=== PATIENT | male | born 1995 | race Caucasian/White ===

== ENCOUNTER → 2017-03-13 | Outpatient (CLI) | payer BC ==
[~2017-03-13] MED LIST: ALBUAER2 INH; FLVHFA110 INH; SNG10 PO
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
== END | disposition home or self-care (01) ==
LOC: C.RDSM 16:22
PROVIDERS: ATTEND Internal Medicine
DX: M79.671 Pain in right foot (principal)

== ENCOUNTER → 2017-03-14 | Outpatient (CLI) | payer BC ==
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
--- NOTE | 2017-03-18 15:13 | CODING QUERY NO DIAGNOSIS ---
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 Please assist us with providing a diagnosis/symptom for the test(s) below: A diagnosis/symptom was not documented on your Order. A valid diagnosis/symptom is required to bill all insurances. Please remember that we are unable to code a diagnosis of rule out, probable, possible, questionable, or suspected. Tests that require a diagnosis: * MRI LOWER EXT NONJOINT W/O CONTRAST DIAGNOSIS: Provider Signature: Date: Thank you Parul Hernandez [employer] Once completed, please kindly fax back to [phone] For questions please call [phone]
--- NOTE | 2017-03-26 05:55 | EDITING REQUIRED CODING QUERY ---
SUPPORTING DIAGNOSIS NEEDED A supporting diagnosis is required for the test/procedure performed on this patient in order for us to be reimbursed by the patient's insurance. Please provide a supporting diagnosis for the following test/procedure listed below next to the test name along with your signature. *If there is no additional diagnosis for this patient that would support the following test/procedure please document that below next to the test/procedure. Test(s)/Procedure(s) that require a supporting diagnosis: * MRI LOWER EXT NONJOINT W/O CONTRAST DIAGNOSIS: Provider Signature: Date: Thank you Parul Shalimar [employer] Once completed, please kindly fax back to [phone] For questions please call [phone]
== END | disposition home or self-care (01) ==
LOC: C.MRI 19:50
PROVIDERS: ATTEND Physical Medicine & Rehabilitation Sports Medicine
DX: S92.424A Nondisplaced fracture of distal phalanx of right great toe, initial encounter for closed fracture (principal); X58.XXXA Exposure to other specified factors, initial encounter

== ENCOUNTER → 2017-04-14 | Outpatient (CLI) | payer BC ==
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
== END | disposition home or self-care (01) ==
LOC: C.RDSM 10:15
PROVIDERS: ATTEND Internal Medicine
DX: S92.901A Unspecified fracture of right foot, initial encounter for closed fracture (principal); X58.XXXA Exposure to other specified factors, initial encounter

== ENCOUNTER → 2017-06-02 | Outpatient (CLI) | payer BC ==
--- NOTE | 2017-06-02 09:51 | DIAGNOSTIC IMAGING REPORT ---
RIGHT FOOT MIN 3 VIEWS CLINICAL HISTORY: Right foot pain COMPARISON: 04/14/2017, MRI dated 03/14/2017 DISCUSSION: No acute fractures or dislocations are visualized. There is a small ossicle visualized in the lateral view the base the metatarsals. There are no erosive or destructive changes. There is subtle sclerotic change at the base of the first metatarsal. IMPRESSION: Very subtle sclerosis at the base of the first metatarsal. This may relate to the fracture described on the March 2017 MRI study. No acute fractures are visualized on conventional radiographic imaging Electronically signed by: Jomar Moss M.D. 06/02/2017 9:50 AM Dictated Date/Time: 06/02/2017 9:47 AM
== END | disposition home or self-care (01) ==
LOC: C.RDSM 13:55
PROVIDERS: ATTEND Physician Assistant
DX: M79.671 Pain in right foot (principal)

== ENCOUNTER → 2017-07-11 | Outpatient (CLI) | payer BC ==
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
== END | disposition home or self-care (01) ==
LOC: C.MRI 17:21
PROVIDERS: ATTEND Internal Medicine
DX: S92.504A Nondisplaced unspecified fracture of right lesser toe(s), initial encounter for closed fracture (principal); X58.XXXA Exposure to other specified factors, initial encounter

== ENCOUNTER 2017-10-17 22:07 | Inpatient (IN) | payer BC, OTHER ==
[~2017-10-17] VITALS: Ht 190.5 cm; Wt 79.3 kg
[2017-10-17] MEDS ORDERED: SODIUM CHLORIDE 0.9% 1000ML 1,000 ML IV ONE (22:30)
[2017-10-17] MEDS ORDERED: XYLOCAINE 1%/SOD BICARB 20 ML VIAL INFIL ONE (22:30)
[2017-10-17] MEDS ORDERED: MoRPHine SULFATE 4 MG/ML 1 ML CARP\\VIAL IV ONE (22:30)
[2017-10-17] MEDS ORDERED: EPP3/2 IM (22:38)
[2017-10-17 22:59] LABS: BASO % 0.2 %; BASO ABS # 0.01 K/uL (0-0.2); EOS % 0.5 %; EOS ABS # 0.03 K/uL (0-0.5); HEMATOCRIT 42.7 % (42-52); IG# 0.03 K/uL (0.00-0.02); LYMPH % 27.7 %; LYMPH ABS # 1.55 K/uL (1.2-3.4); MEAN CELL VOLUME 85.6 fL (80-100); MEAN CORPUSCULAR HEMOGLOBIN 30.1 pg (25-34); MEAN CORPUSCULAR HGB CONC 35.1 g/dl (32-36); MEAN PLATELET VOLUME 10.3 fL (7.4-10.4); MONO % 7.7 %; MONO ABS # 0.43 K/uL (0.11-0.59); NEUT % 63.4 %; NEUT ABS # 3.54 K/uL (1.4-6.5); PLATELET COUNT 167 K/uL (130-400); RED CELL DISTRIBUTION WIDTH CV 11.9 % (11.5-14.5); RED CELL DISTRIBUTION WIDTH SD 36.8 fL (36.4-46.3); WHITE BLOOD COUNT 5.59 K/uL (4.8-10.8)
[2017-10-17 23:22] LABS: ALBUMIN 4.2 gm/dl (3.4-5.0); CALCIUM 8.5 mg/dl (8.5-10.1); CREATININE 1.02 mg/dl (0.60-1.40); POTASSIUM 3.4 mmol/L (3.5-5.1)
[2017-10-17 23:24] LABS: TOTAL PROTEIN 7.2 gm/dl (6.4-8.2)
[2017-10-18] MEDS ORDERED: MoRPHine SULFATE 4 MG/ML 1 ML CARP\\VIAL IV ONE (03:00)
[2017-10-18] MEDS ORDERED: NURSING VERBAL MED ORDER ONE (03:00)
[2017-10-18 03:55] VITALS: BP 137/82; PULSE 94; TEMP 37.7; O2SAT 96; Ht 190.5 cm; Wt 79.3 kg
[2017-10-18] MEDS ORDERED: LACTATED RINGER'S 1000ML 1,000 ML IV SCH (05:15)
[2017-10-18] MEDS ORDERED: ONDANSETRON INJ 2 MG/ML 2 ML VIAL IV PRN (05:15)
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
[2017-10-18] MEDS: OXYCODONE HCL IR 5 MG TAB (IMMEDIATE RELEASE) PO PRN ×5 (05:48→23:26)
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
[2017-10-18 06:17] LABS: INR 1.1 (0.9-1.1)
[2017-10-18 07:34] VITALS: BP 132/79; PULSE 109; TEMP 37.7; O2SAT 97
[2017-10-18] MEDS: DOCUSATE SODIUM 100 MG CAP PO SCH ×2 (08:35→21:08)
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
[2017-10-18] MEDS ORDERED: ENOXAPARIN 40 MG/0.4 ML SYR SQ SCH (12:00)
[2017-10-18 15:42] VITALS: BP 131/67; PULSE 86; TEMP 37.3; O2SAT 95
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
[2017-10-18 22:50] VITALS: BP 138/73; PULSE 69; TEMP 37.3; O2SAT 98
[2017-10-19] MEDS: OXYCODONE HCL IR 5 MG TAB (IMMEDIATE RELEASE) PO PRN ×4 (05:00→20:50)
[2017-10-19 07:25] VITALS: BP 125/71; PULSE 76; TEMP 36.9; O2SAT 98
--- NOTE | 2017-10-19 08:12 | Orthopedic Progress Note ---
Orthopedic Progress Note Date of Service Oct 19, 2017. Subjective Additional Notes: Got up to chair with PT and a walker yesterday. Pain well controlled on oxycodone. No numbness/tingling. Would like to avoid needle injections for DVT prophylaxis Objective calves soft nontender, N/V intact, hip located, capillary refill less than 2 sec., A&O x3, toes mobile L hip: able to actively logroll hip and gently flex. Distally NVI. Date Time Temp Pulse Resp B/P (MAP) Pulse Ox O2 Delivery O2 Flow Rate FiO2 10/19/17 07:25 36.9 76 19 125/71 (89) 98 Room Air 10/18/17 23:20 Room Air 10/18/17 22:50 37.3 69 16 138/73 (94) 98 Room Air 10/18/17 15:42 37.3 86 19 131/67 (88) 95 Room Air 10/18/17 15:10 Room Air Assessment & Plan Assessment: L nondisplaced intertrochanteric hip fracture, tolerating nonoperative treatment to date Plan: Will switch DVT prophylaxis from Lovenox to Xarelto to avoid needle sticks Continue oxycodone and tylenol for pain control NWB LLE with walker. Would wait until tomorrow to switch to crutches Activity: bed to chair and bed to bathroom. If tolerates this, may ambulate into hallway with walker. Will obtain x-rays this afternoon after PT/OT to ensure no displacement of fracture Discharge plan: home once able to independently get OOB and ambulate NWB LLE with assistive device. Expect this to be Friday or Friday at the earliest Discharge Planning Pain Management: PO Tylenol, Oxy IR DVT Prophylaxis: Xarelto Therapy: Physical Therapy, Occupational Therapy
[2017-10-19] MEDS: DOCUSATE SODIUM 100 MG CAP PO SCH ×2 (08:56→20:49)
[2017-10-19] MEDS: RIVAROXABAN 10 MG TAB PO SCH (10:14)
[2017-10-19] MEDS: ACETAMINOPHEN 500 MG TAB PO PRN ×2 (12:21→20:49)
[2017-10-19 13:04] VITALS: BP 133/82
--- NOTE | 2017-10-19 14:36 | DIAGNOSTIC IMAGING REPORT ---
LEFT HIP 2 VIEWS HISTORY: L intertrochanteric hip fracture. COMPARISON: Left hip CT 10/17/2017. FINDINGS: No change in the nondisplaced left intertrochanteric hip fracture. The visualized pelvic bones are intact. No dislocation. Lateral soft tissue swelling within the hip. No radiopaque foreign bodies. IMPRESSION: No change in the nondisplaced left intertrochanteric hip fracture. Electronically signed by: Anant Best M.D. 10/19/2017 2:35 PM Dictated Date/Time: 10/19/2017 2:33 PM
[2017-10-19 15:47] VITALS: BP 147/71; PULSE 54; TEMP 37; O2SAT 99
[2017-10-19 23:20] VITALS: BP 120/48; PULSE 61; TEMP 36.9; O2SAT 97
[2017-10-20] MEDS: OXYCODONE HCL IR 5 MG TAB (IMMEDIATE RELEASE) PO PRN ×6 (00:56→21:23)
[2017-10-20] MEDS: ACETAMINOPHEN 500 MG TAB PO PRN ×2 (06:49→21:22)
[2017-10-20 07:01] VITALS: BP 122/67; PULSE 66; TEMP 36.9; O2SAT 100
[2017-10-20] MEDS: RIVAROXABAN 10 MG TAB PO SCH (09:01)
[2017-10-20] MEDS: DOCUSATE SODIUM 100 MG CAP PO SCH ×2 (09:01→21:36)
--- NOTE | 2017-10-20 16:00 | Orthopedic Progress Note ---
Orthopedic Progress Note Date of Service Oct 20, 2017. 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 Objective calves soft nontender, N/V intact, hip located, A&O x3, toes mobile Able to passively internally and externally rotate Left LE with mild pain referred to hip Date Time Temp Pulse Resp B/P (MAP) Pulse Ox O2 Delivery O2 Flow Rate FiO2 10/20/17 07:15 Room Air 10/20/17 07:01 36.9 66 16 122/67 (85) 100 Room Air 10/19/17 23:20 36.9 61 16 120/48 (72) 97 Room Air 10/19/17 23:20 Room Air Assessment & Plan Assessment: L nondisplaced intertrochanteric hip fracture, tolerating nonoperative treatment to date Plan: Cont DVT prophylaxis with Xarelto Continue oxycodone and tylenol for pain control NWB LLE with walker. Activity: bed to chair and bed to bathroom. If tolerates this, may ambulate into hallway with walker. Discharge plan: home once able to independently get OOB and ambulate NWB LLE with assistive device. Expect this to be Friday or Friday. Considering either home therapy or inpatient therapy at [facility] upon discharge. Will cont to follow while inpatient and will schedule clinic f/u upon discharge. Discharge Planning Pain Management: PO Tylenol, Oxy IR DVT Prophylaxis: Xarelto Therapy: Physical Therapy, Occupational Therapy
[2017-10-20 23:01] VITALS: BP 133/79; PULSE 63; TEMP 36.6; O2SAT 98
[2017-10-21] MEDS: OXYCODONE HCL IR 5 MG TAB (IMMEDIATE RELEASE) PO PRN ×2 (02:40→20:52)
--- NOTE | 2017-10-21 07:24 | Orthopedic Progress Note ---
Orthopedic Progress Note Date of Service Oct 21, 2017. Subjective Additional Notes: Hargill more comfortable in bed and with therapy yesterday. Has been able to space out his oxycodone more. Wore a knee immobilizer for transfers which seemed to help. Has not had a bowel movement yet as an inpatient Objective L leg: actively internally and externally rotating L leg with mild pain in groin. Distally NVI. Date Time Temp Pulse Resp B/P (MAP) Pulse Ox O2 Delivery O2 Flow Rate FiO2 10/20/17 23:01 36.6 63 18 133/79 (97) 98 Room Air 10/20/17 23:00 Room Air 10/20/17 15:40 Room Air Assessment & Plan Assessment: L nondisplaced intertrochanteric hip fracture, tolerating nonoperative treatment to date Plan: Continue to wean his oxycodone, with short-term goal that he only takes it before and after PT/OT in next day or two. Tylenol switched to scheduled basis. Cont DVT prophylaxis with Xarelto On Colace, will add Miralax prn for constipation PT/OT daily. NWB LLE with walker. Activity: bed to chair and bed to bathroom. If tolerates this, may ambulate into hallway with walker. Discharge plan: home once able to independently get OOB and ambulate NWB LLE with assistive device. Due to his current pain level with mobilizing, this will likely not be before the weekend. Will cont to follow while inpatient and will schedule clinic f/u upon discharge. Discharge Planning Pain Management: PO Tylenol, Oxy IR DVT Prophylaxis: Xarelto Therapy: Physical Therapy, Occupational Therapy
[2017-10-21] MEDS: DOCUSATE SODIUM 100 MG CAP PO SCH ×2 (08:42→20:51)
[2017-10-21] MEDS: POLYETHYLENE (MIRALAX) 17 GM PACK PO PRN (08:42)
[2017-10-21] MEDS: ACETAMINOPHEN 500 MG TAB PO SCH ×2 (08:43→16:20)
[2017-10-21] MEDS: RIVAROXABAN 10 MG TAB PO SCH (09:51)
[2017-10-21 15:09] VITALS: BP 123/76; PULSE 66; TEMP 36.7; O2SAT 100
[2017-10-21 22:56] VITALS: BP 125/79; PULSE 59; TEMP 36.5; O2SAT 97
[2017-10-22] MEDS: ACETAMINOPHEN 500 MG TAB PO SCH ×4 (00:37→23:58)
[2017-10-22] MEDS: OXYCODONE HCL IR 5 MG TAB (IMMEDIATE RELEASE) PO PRN ×3 (00:51→19:52)
[2017-10-22 07:38] VITALS: BP 128/78; PULSE 60; TEMP 36.5; O2SAT 98
[2017-10-22] MEDS: DOCUSATE SODIUM 100 MG CAP PO SCH ×2 (08:23→19:51)
[2017-10-22] MEDS: RIVAROXABAN 10 MG TAB PO SCH (08:23)
--- NOTE | 2017-10-22 08:35 | Orthopedic Progress Note ---
Orthopedic Progress Note Date of Service Oct 22, 2017. Subjective Additional Notes: Lewis was able to ambulate to the bathroom and back with walker yesterday, and had 2 bowel movements. He did not require any oxycodone during the day. This morning, he was dreaming of tackling someone, and reflexively moved his hip, causing some pain but this responded to tylenol and oxycodone. Objective calves soft nontender, N/V intact, hip located, capillary refill less than 2 sec., toes mobile Date Time Temp Pulse Resp B/P (MAP) Pulse Ox O2 Delivery O2 Flow Rate FiO2 10/22/17 07:38 36.5 60 18 128/78 (95) 98 Room Air 10/22/17 00:35 Room Air 10/21/17 22:56 36.5 59 14 125/79 (94) 97 Room Air 10/21/17 15:35 Room Air 10/21/17 15:09 36.7 66 18 123/76 (92) 100 Room Air Assessment & Plan Assessment: L nondisplaced intertrochanteric hip fracture, tolerating nonoperative treatment to date Plan: PT/OT daily. NWB LLE with walker. 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 Activity: bed to chair and bed to bathroom. May ambulate in the hallway with walker if tolerated. Will check an x-ray of his hip after physical therapy today to ensure no displacement as a result of his dream this morning or PT. Continue to wean his oxycodone. Continue Tylenol on a scheduled basis. DVT prophylaxis with Xarelto, TEDS and foot pumps Colace scheduled and Miralax prn for constipation Discharge plan: home once able to independently get OOB and ambulate NWB LLE with assistive device. Due to his current pain level with mobilizing, this will likely not be before the weekend. Will cont to follow while inpatient and will schedule clinic f/u upon discharge. Discharge Planning Pain Management: PO Tylenol, Oxy IR DVT Prophylaxis: Xarelto Therapy: Physical Therapy, Occupational Therapy
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
[2017-10-22 15:30] VITALS: BP 120/74; PULSE 75; TEMP 36.8; O2SAT 96
[2017-10-22 22:52] VITALS: BP 130/77; PULSE 75; TEMP 36.6; O2SAT 96
[2017-10-23] MEDS: OXYCODONE HCL IR 5 MG TAB (IMMEDIATE RELEASE) PO PRN ×4 (06:32→21:03)
--- NOTE | 2017-10-23 07:25 | Orthopedic Progress Note ---
Orthopedic Progress Note Date of Service Oct 23, 2017. Subjective Additional Notes: Ambulated 150 feet with walker yesterday. Still difficulty raising his foot off the ground. Objective N/V intact, hip located, capillary refill less than 2 sec., A&O x3, toes mobile Date Time Temp Pulse Resp B/P (MAP) Pulse Ox O2 Delivery O2 Flow Rate FiO2 10/22/17 22:52 36.6 75 16 130/77 (94) 96 Room Air 10/22/17 19:30 Room Air 10/22/17 16:00 Room Air 10/22/17 15:30 36.8 75 16 120/74 (89) 96 Room Air 10/22/17 07:38 36.5 60 18 128/78 (95) 98 Room Air Additional Notes: X-ray done yesterday afternoon shows no displacement Assessment & Plan Assessment: L nondisplaced intertrochanteric hip fracture, tolerating nonoperative treatment to date Plan: PT/OT daily. NWB LLE with walker. 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 Activity: bed to chair and bed to bathroom. May ambulate in the hallway with walker if tolerated. Will check an x-ray of his hip after physical therapy today to ensure no displacement as a result of his dream this morning or PT. Continue to wean his oxycodone. Continue Tylenol on a scheduled basis. DVT prophylaxis with Xarelto, TEDS and foot pumps Colace scheduled and Miralax prn for constipation Discharge plan: home once able to independently get OOB and ambulate NWB LLE with assistive device. Due to his current pain level with mobilizing, this will likely not be before the weekend. Will cont to follow while inpatient and will schedule clinic f/u upon discharge. Discharge Planning Pain Management: PO Tylenol, Oxy IR DVT Prophylaxis: Xarelto Therapy: Physical Therapy, Occupational Therapy
[2017-10-23 07:41] VITALS: BP 129/78; PULSE 55; TEMP 36.4; O2SAT 98
[2017-10-23] MEDS: DOCUSATE SODIUM 100 MG CAP PO SCH ×2 (08:31→21:02)
[2017-10-23] MEDS: RIVAROXABAN 10 MG TAB PO SCH (08:31)
[2017-10-23] MEDS: ACETAMINOPHEN 500 MG TAB PO SCH ×2 (08:31→15:59)
[2017-10-23 15:15] VITALS: BP 115/68; PULSE 65; TEMP 36.6; O2SAT 97
[2017-10-23 16:00] VITALS: O2SAT 97
[2017-10-23 23:05] VITALS: BP 138/82; PULSE 58; TEMP 36.8; O2SAT 98
[2017-10-24] MEDS: ACETAMINOPHEN 500 MG TAB PO SCH ×4 (00:39→23:12)
[2017-10-24 07:44] VITALS: BP 123/81; PULSE 56; TEMP 36.5; O2SAT 96
[2017-10-24] MEDS: DOCUSATE SODIUM 100 MG CAP PO SCH ×2 (09:00→21:14)
--- NOTE | 2017-10-24 09:04 | Orthopedic Progress Note ---
Orthopedic Progress Note Date of Service Oct 24, 2017. Subjective Additional Notes: Ambulated with crutches yesterday. Able to pick his foot up off the ground. Not able to transfer in/out of bed independently yet. Objective calves soft nontender, N/V intact, hip located, capillary refill less than 2 sec., A&O x3, toes mobile Date Time Temp Pulse Resp B/P (MAP) Pulse Ox O2 Delivery O2 Flow Rate FiO2 10/24/17 07:44 36.5 56 17 123/81 (95) 96 Room Air 10/24/17 00:45 Room Air 10/23/17 23:05 36.8 58 18 138/82 (100) 98 Room Air 10/23/17 19:30 Room Air 10/23/17 16:00 97 Room Air 10/23/17 15:15 36.6 65 18 115/68 (84) 97 Room Air Assessment & Plan Assessment: L nondisplaced intertrochanteric hip fracture, improving Plan: PT/OT daily. NWB LLE with walker or chair Activity: up ad jairo Continue to wean his oxycodone. Continue Tylenol on a scheduled basis. DVT prophylaxis with Xarelto, TEDS and foot pumps Colace scheduled and Miralax prn for constipation Discharge plan: home once able to independently get OOB and ambulate NWB LLE with assistive device. Anticipate discharge tomorrow or Friday. Discharge Planning Pain Management: PO Tylenol, Oxy IR DVT Prophylaxis: Xarelto Therapy: Physical Therapy, Occupational Therapy
[2017-10-24] MEDS: RIVAROXABAN 10 MG TAB PO SCH (09:30)
[2017-10-24] MEDS: OXYCODONE HCL IR 5 MG TAB (IMMEDIATE RELEASE) PO PRN ×2 (09:31→20:28)
[2017-10-24] MEDS ORDERED: OXYC1CAP5 PO (12:29)
[2017-10-24] MEDS ORDERED: XRL10 PO (12:29)
[2017-10-24] MEDS ORDERED: ACET-1256 PO (12:29)
--- NOTE | 2017-10-24 12:34 | Discharge Instructions ---
Discharge Instructions Date of Service Oct 24, 2017. Admission Reason for Admission: Left Introcanteric Hip Fx Discharge Discharge Diagnosis / Problem: Left Intratrochanteric hip Fracture Discharge Goals Goal(s): Decrease discomfort, Improve function, Increase independence Activity Recommendations Activity Limitations: as noted below Lifting Limitations: until after follow-up appointment Exercise/Sports Limitations: until after follow-up appointment May Resume Sexual Activity: after follow-up appointment Shower/Bathe: no limitations Driving or Machine Use: No driving until cleared by orthopedic surgeon Weightbearing Status: Left non-weightbearing (Ambulatory aid with crutches) . Instructions / Follow-Up Instructions / Follow-Up Post-operative Instructions Dear Patient and Family/Friends, Before you are discharged from the hospital, it is important to know what to expect when you get home after surgery. To that end, we have created this sheet of discharge instructions which covers many commonly asked questions. Make sure you go through this sheet in its entirety with your nurse before you are discharged. Please note that we will go over the specifics of your surgery and recovery when you return for your first post-operative visit. Sincerely, Dr. Hodge Pain Expect to be in a fair amount of pain after surgery. Remember, our goal is not to eliminate your pain, but to make it tolerable. It is a good idea to stay ahead of your pain by taking the medications you were prescribed once you get home. Typically, the pain starts improving 3-7 days after surgery. You should start weaning off the narcotic pain medication (oxycodone, hydrocodone, hydromorphone, morphine) as soon as your pain improves. Please call our office if your pain is not adequately controlled. Ice Ice your operative site at least 5 times a day for 15-30 minutes at a time. Make sure you have a thin cloth between the ice or cooling unit and your skin to prevent cottrell bite. This is especially important if you received a nerve block. Continue icing your operative site for the first 5-7 days after surgery , then as needed. Diet/Nausea/Vomiting Start by drinking clear liquids and eating crackers. If you can tolerate this, then you may resume your normal diet. If you feel nauseated or vomit, take Zofran/ondansetron (if prescribed). Please call our office if you have intractable nausea or vomiting, or, if after hours, you may go to the Emergency Room for help. Constipation Constipation is a common side effect of narcotic pain medication. If you have not had a bowel movement within 2 days after surgery, we recommend purchasing an over the counter laxative such as Milk of Magnesia, Dulcolax, or Miralax from a local pharmacy, and taking it as instructed. Call our clinic if any questions. Slings and Braces If you were placed in a sling or brace, it must be worn at all times, including sleep. You may remove your sling or brace for physical therapy, home exercises , and showering. The length of time you will be in your brace and range of motion restrictions depends on what surgery you had; these details will be reviewed at your first post-operative appointment. Nerve block The anesthesia team sometimes places a nerve block to help with post-operative pain control. This results in significant numbness and inability to move the extremity. The nerve block usually wears off in 8-12 hours, but sometimes can last up to 24 hours. Please call our office if you are still unable to move your extremity after 24 hours, unless you received a pain pump to take home. Nerve blocks typically wear off quickly, so start taking pain medication as soon as you start feeling soreness near your surgical site. Weight bearing and Range of Motion. Do not bear any weight through your operative extremity immediately after surgery. If you had upper extremity surgery, do not lift anything with that arm. If you are in a knee brace, keep it locked in place until your follow-up. We will discuss your weight bearing, range of motion, and lifting restrictions in detail at your first post-operative appointment. Continuous Passive Motion (CPM) Machine If you were prescribed a CPM machine, it will start after your first post- operative appointment, at which time we will give you instructions on the range of motion settings and duration of treatment Physical therapy You will be given a prescription for physical therapy or occupational therapy at your first post-operative appointment. Typically, patients start therapy within 1 week of surgery Wound care and showering We will inspect your wound at your first post-operative visit, and may do a dressing change at that time. Most patients will be in a water-proof dressing that is removed 14 days after surgery. It is normal to see some dried blood on the dressing. Do not remove your dressing, paper strips or sutures yourself unless you are given permission. Showering is allowed the day after surgery. Do not scrub or remove any dressings. The wound should not be submerged underwater (i.e. in a bathtub or pool) until 4 weeks after surgery ANA stockings If you were given white stockings, these are to be worn at all times except to shower (on both legs) for the first 2 weeks after surgery. Driving You may not drive while taking narcotic pain medication or while in a cast, splint, sling or brace. You, the patient, need to make the final determination about when you are safe to drive, however, the earliest you may consider driving after surgery is below: Hand/Wrist/Elbow Surgery: 3 days Shoulder Surgery: 2 weeks Hip,/Knee/Ankle Surgery: 4 weeks Fracture repair: 6 weeks Return to Work Your return to work depends on what surgery was done and what type of work you do. Please bring any paperwork your employer needs completed to your first post -operative visit. Also, bring a description of your job duties, as this helps us to understand what risks you may face at work. Travel Avoid long distance travel (greater than 1 hour) in airplanes and cars for the first 6 weeks after surgery. If you must travel, you need to have a Doppler ultrasound done before you travel to rule out a blood clot in your legs. Follow-up You should have a follow-up appointment already scheduled 1-2 days after surgery. If not, please contact our office to make this appointment before you leave the hospital. When to call the office It is normal to have swelling and bruising in the limb that was operated on. This will improve with time. It is also normal to have fevers for the first 2 days after surgery. Reasons you should call your doctor include: Uncontrolled pain; Nausea, vomiting, or constipation that does not improve with medication; Fevers over 101.5, chills, sweats; Drainage or bleeding from the wound; Foul odor; Spreading areas of redness; Any other concerns Current Hospital Diet Patient's current hospital diet: Regular Diet Discharge Diet Recommended Diet: Regular Diet Pending Studies Studies pending at discharge: no Medical Emergencies . Who to Call and When: Medical Emergencies: If at any time you feel your situation is an emergency, please call 911 immediately. . Non-Emergent Contact Non-Emergency issues call your: Primary Care Provider Call Non-Emergent contact if: you have a fever, temperature is above 101.5, your pain is not controlled, your pain is worsening, you have any medication questions . "Provider Documentation" section prepared by Ramses Mcmanus. . VTE Core Measure Inpt VTE Proph given/why not?: Other Anticoagulation (xarelto), [place] Drug Monitoring Program Search Results: patient reviewed within database, no issues identified, see additional documentation
[2017-10-24] MEDS: POLYETHYLENE (MIRALAX) 17 GM PACK PO PRN (13:24)
[2017-10-24 15:12] VITALS: BP 132/70; PULSE 63; TEMP 36.4; O2SAT 97
[2017-10-24 22:42] VITALS: BP 125/72; PULSE 58; TEMP 36.5; O2SAT 98
[2017-10-25 08:00] VITALS: BP 135/83; PULSE 58; TEMP 36.5; O2SAT 99
[2017-10-25] MEDS: ACETAMINOPHEN 500 MG TAB PO SCH (08:01)
[2017-10-25] MEDS: DOCUSATE SODIUM 100 MG CAP PO SCH (08:12)
[2017-10-25] MEDS: RIVAROXABAN 10 MG TAB PO SCH (08:12)
--- NOTE | 2017-10-25 09:42 | Orthopedic Progress Note ---
Orthopedic Progress Note Date of Service Oct 25, 2017. Subjective Post OP Day: 5 days post injury Reports: feeling well, pain controlled w PO medications, Denies: complaints, chest pain, SOB, nausea / vomiting, light headedness, calf pain Objective calves soft nontender, N/V intact, hip located, capillary refill less than 2 sec., A&O x3, toes mobile, CMS intact no pain with log rolling of hip, mild pain with passive flexion Date Time Temp Pulse Resp B/P (MAP) Pulse Ox O2 Delivery O2 Flow Rate FiO2 10/25/17 08:00 36.5 58 15 135/83 (100) 99 Room Air 10/24/17 22:42 36.5 58 15 125/72 (89) 98 Room Air 10/24/17 19:15 Room Air 10/24/17 15:12 36.4 63 16 132/70 (90) 97 Room Air Assessment & Plan Assessment: L nondisplaced intertrochanteric hip fracture, improving Plan: PT/OT today. NWB LLE with walker or chair Activity: up ad jairo Continue to wean his oxycodone. Continue Tylenol on a scheduled basis. DVT prophylaxis with Xarelto, TEDS and foot pumps Colace scheduled and Miralax prn for constipation Discharge plan: home this afternoon. [facility] home health will start tomorrow. Pt will call his parents for transport. Discharge Planning Discharge Planning: home with home health Pain Management: PO Tylenol, Oxy IR DVT Prophylaxis: TEDs, SCDs, Xarelto Therapy: Physical Therapy, Occupational Therapy
[2017-10-25] MEDS: OXYCODONE HCL IR 5 MG TAB (IMMEDIATE RELEASE) PO PRN (10:38)
[2017-10-25 12:00] VITALS: BP 135/83; PULSE 58; TEMP 36.5; O2SAT 99
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
== END 2017-10-25 14:30 | disposition home health service (06) | DRG 536 ==
LOC: EDBD 22:07 → C.EDB 22:08 → C.MSN 10-18 03:17 → ENRESERV 10-18 03:32
PROVIDERS: ADMIT Orthopaedic Surgery; ATTEND Orthopaedic Surgery
PROC: 0HQCXZZ Repair Left Upper Arm Skin, External Approach (ICD-10-PCS; principal; 2017-10-18)
DX: S72.145A Nondisplaced intertrochanteric fracture of left femur, initial encounter for closed fracture (principal); S51.019A Laceration without foreign body of unspecified elbow, initial encounter; S80.212A Abrasion, left knee, initial encounter; S30.810A Abrasion of lower back and pelvis, initial encounter; J45.909 Unspecified asthma, uncomplicated; Z51.81 Encounter for therapeutic drug level monitoring; V13.4XXA Pedal cycle driver injured in collision with car, pick-up truck or van in traffic accident, initial encounter; Y93.55 Activity, bike riding; Y99.0 Civilian activity done for income or pay

== ENCOUNTER → 2017-10-31 | Outpatient (CLI) | payer OTHER ==
[~2017-10-31] MED LIST changes: +ACET-1256 PO; -ALBUAER2 INH; +EPP3/2 IM; -FLVHFA110 INH; +OXYC1CAP5 PO; -SNG10 PO; +XRL10 PO
== END | disposition home or self-care (01) ==
LOC: C.RDSM 08:00
PROVIDERS: ATTEND Orthopaedic Surgery
DX: M25.552 Pain in left hip (principal)

== ENCOUNTER → 2017-11-14 | Outpatient (CLI) | payer OTHER ==
[~2017-11-14] MED LIST changes: -XRL10 PO
== END | disposition home or self-care (01) ==
LOC: C.RDSM 19:56
PROVIDERS: ATTEND Orthopaedic Surgery
DX: S72.002A Fracture of unspecified part of neck of left femur, initial encounter for closed fracture (principal); X58.XXXA Exposure to other specified factors, initial encounter; Z91.048 Other nonmedicinal substance allergy status

== ENCOUNTER → 2017-12-03 | Outpatient (CLI) | payer OTHER | END | disposition home or self-care (01) | LOC: C.RDSM 20:13 | PROVIDERS: ATTEND Orthopaedic Surgery | DX: T14.8XXA Other injury of unspecified body region, initial encounter (principal); X58.XXXA Exposure to other specified factors, initial encounter ==

== ENCOUNTER → 2017-12-31 | Outpatient (CLI) | payer OTHER | END | disposition home or self-care (01) | LOC: C.RDSM 11:30 | PROVIDERS: ATTEND Orthopaedic Surgery | DX: S72.002A Fracture of unspecified part of neck of left femur, initial encounter for closed fracture (principal); X58.XXXA Exposure to other specified factors, initial encounter ==